=== PATIENT | female | born 1960 | race African-American/Black ===

== ENCOUNTER 2024-04-21 20:47 | Emergency (ER) | payer MEDICAID ==
[~2024-04-21] VITALS: Ht 167.6 cm; Wt 90.7 kg
[2024-04-21 20:55] VITALS: BP 161/89; PULSE 67; RESP 14; TEMP 98.3; O2SAT 99
[2024-04-21 21:20] VITALS: TEMP 98.3; O2SAT 97
[2024-04-21 21:40] LABS: APPEARANCE,URINE CLEAR (CLEAR); BASOPHILS # (AUTO) 0.1 K/uL (0.00-0.22); BASOPHILS % (AUTO) 1.6 % (0.0-2.0); BILIRUBIN,URINE NEGATIVE (NEGATIVE); BLOOD, URINE TRACE-I (NEGATIVE); COLOR,URINE YELLOW (YELLOW); EOSINOPHILS # (AUTO) 0.2 K/uL (0-0.4); EOSINOPHILS % (AUTO) 4.7 % (0.0-4.0); HEMATOCRIT 43.4 % (36-48); HEMOGLOBIN 14.4 g/dL (12.0-16.0); LEUKOCYTE ESTERASE ,URINE NEGATIVE (NEGATIVE); LYMPHOCYTES # (AUTO) 2.2 K/uL (2.5-16.5); LYMPHOCYTES % (AUTO) 42.3 % (20.5-51.1); MEAN CORPUSCULAR HEMOGLOBIN 28 pg (27-31); MEAN CORPUSCULAR HGB CONC 33 g/dL (33-37); MEAN CORPUSCULAR VOLUME 84.1 fL (80-94); MONOCYTES # (AUTO) 0.3 K/uL (0.8-1.0); NEUTROPHILS # (AUTO) 2.4 K/uL (1.8-7.7); NEUTROPHILS % (AUTO) 45.4 % (42.2-75.2); NITRITE, URINE NEGATIVE (NEGATIVE); PLATELET COUNT (AUTO) 210 K/uL (140-450); PROTEIN,URINE NEGATIVE (NEGATIVE); RED BLOOD CELL COUNT(AUTO) 5.16 MIL/uL (4.20-5.40); RED CELL DISTRIBUTION WIDTH 14.8 % (11.6-13.7); UGLUCOSE 3+ (NEGATIVE); UROBILINOGEN,URINE 0.2 EU/dL (0.2 - 1); WHITE BLOOD COUNT (AUTO) 5.2 K/uL (4.8-10.8)
[2024-04-21 21:48] LABS: ANION GAP 11.5 (8-16); CALCIUM 9.7 mg/dL (8.5-10.1); CARBON DIOXIDE 30.5 mmol/L (21-32); CREATININE 1.2 mg/dL (0.6-1.3)
[2024-04-21 21:51] LABS: INR 1.05 (0.8-1.2); PARTIAL THROMBOPLASTIN TIME 24.3 secs (22-35.6)
[2024-04-21] MEDS: KETOROLAC 30 MG/ML VIAL IVP ONE (23:39)
[2024-04-21] MEDS: PROCHLORPERAZINE 10 MG/2 ML VIAL IVP ONE (23:39)
[2024-04-21] MEDS: diphenhydrAMINE 50 MG/ML VIAL IVP ONE (23:40)
[2024-04-22 00:05] VITALS: O2SAT 97
[2024-04-22] MEDS ORDERED: ACET500T99 PO (01:53)
[2024-04-22 02:06] VITALS: BP 119/54; PULSE 72; RESP 18; O2SAT 96
== END 2024-04-22 02:06 | disposition home or self-care (01) ==
LOC: MED 20:47
DX: G43.909 Migraine, unspecified, not intractable, without status migrainosus (principal); R20.2 Paresthesia of skin; I11.0 Hypertensive heart disease with heart failure; I50.9 Heart failure, unspecified; Z95.0 Presence of cardiac pacemaker; Z79.899 Other long term (current) drug therapy; Z88.8 Allergy status to other drugs, medicaments and biological substances
CPT/HCPCS: 36415; 70450; 70496; 70498; 71045; 80048; 81003; 84484; 85025; 85610; 85730; 86886; 86900; 86901; 93005; 96374; 96375; 99285; J0780; J1200; J1885; Q0092